=== PATIENT | female | born 1960 | race Two or more races ===

== ENCOUNTER → 2018-09-19 | Day surgery (SDC) | payer OTHER ==
[~2018-09-19] MED LIST: AMBIEN10 MG; CATAFLAN 50MG; CLONAZEPAM0.5 M1; LEXAPRO 10MG; LEXAPRO20 MG; WELLBUTRIN SR150 MG; WELLBUTRIN XL300 MG
== END | disposition home or self-care (01) ==
LOC: ADM 09-12 11:00 → CIR.AMB 08:25
DX: K64.8 Other hemorrhoids (principal)

== ENCOUNTER 2020-07-18 09:15 | Outpatient (CLI) | payer OTHER | END 2020-07-18 15:00 | disposition home or self-care (01) | LOC: LAB 09:15 | PROVIDERS: ATTEND Surgery | DX: K64.4 Residual hemorrhoidal skin tags (principal); K59.09 Other constipation; K62.5 Hemorrhage of anus and rectum ==

== ENCOUNTER 2020-07-30 07:18 | Day surgery (SDC) | payer OTHER | END 2020-07-30 13:45 | disposition home or self-care (01) | LOC: AMB-ENDOS 07:18 | PROVIDERS: ATTEND Surgery | DX: K63.5 Polyp of colon (principal); K64.8 Other hemorrhoids; Z20.828 Contact with and (suspected) exposure to other viral communicable diseases ==

== ENCOUNTER 2022-12-16 03:18 | Emergency (ER) | payer OTHER ==
[~2022-12-16] VITALS: Ht 160 cm; Wt 104.3 kg
[2022-12-16] MEDS ORDERED: HYDRODIURIL12.5 MG PO (03:32)
[2022-12-16] MEDS ORDERED: COZAAR25 MG PO (03:32)
== END 2022-12-16 18:17 | disposition home or self-care (01) ==
LOC: ER 03:18
DX: K80.20 Calculus of gallbladder without cholecystitis without obstruction (principal); R11.0 Nausea; R10.11 Right upper quadrant pain; I10 Essential (primary) hypertension; G47.33 Obstructive sleep apnea (adult) (pediatric); M79.7 Fibromyalgia; M50.30 Other cervical disc degeneration, unspecified cervical region; M51.36 Other intervertebral disc degeneration, lumbar region

== ENCOUNTER 2023-01-03 14:54 | Outpatient (CLI) | payer OTHER ==
[~2023-01-03 14:54] MED LIST changes: +COZAAR25 MG PO; +HYDRODIURIL12.5 MG PO
== END 2023-01-03 14:58 | disposition home or self-care (01) ==
LOC: RAD 14:54
PROVIDERS: ATTEND Surgery
DX: K59.09 Other constipation (principal); K57.30 Diverticulosis of large intestine without perforation or abscess without bleeding; K80.10 Calculus of gallbladder with chronic cholecystitis without obstruction

== ENCOUNTER 2023-01-11 06:00 | Day surgery (SDC) | payer OTHER ==
[~2023-01-11] VITALS: Ht 160 cm; Wt 104.3 kg
[2023-01-11] MEDS ORDERED: PERCOCET 5-3251 EACH PO (14:12)
[2023-01-11] MEDS ORDERED: LEVSIN/SL0.125 MG SL (14:12)
[2023-01-11] MEDS ORDERED: PROTONIX40 MG PO (14:13)
== END 2023-01-11 20:40 | disposition home or self-care (01) ==
LOC: CIR.AMB 06:00
PROVIDERS: ATTEND Surgery
DX: K80.10 Calculus of gallbladder with chronic cholecystitis without obstruction (principal); K59.09 Other constipation; K57.30 Diverticulosis of large intestine without perforation or abscess without bleeding; I10 Essential (primary) hypertension; F17.210 Nicotine dependence, cigarettes, uncomplicated; R73.03 Prediabetes; Z91.018 Allergy to other foods; Z20.822 Contact with and (suspected) exposure to COVID-19